=== PATIENT | female | born 1940 | race Caucasian/White ===

== ENCOUNTER → 2016-06-24 | Outpatient (CLI) | payer OTHER ==
[2016-06-24 14:42] LABS: HEMOGLOBIN A1C 6.85 % (4.2-6.0)
== END ==
LOC: LAB 14:15
DX: E11.9 Type 2 diabetes mellitus without complications (principal)
CPT/HCPCS: 36415; 83036

== ENCOUNTER → 2016-07-01 | Outpatient (CLI) | payer OTHER | LOC: MMPC 09:00 | DX: E11.9 Type 2 diabetes mellitus without complications (principal); I10 Essential (primary) hypertension; G25.0 Essential tremor; E78.5 Hyperlipidemia, unspecified; K21.9 Gastro-esophageal reflux disease without esophagitis; N64.4 Mastodynia | CPT/HCPCS: 99213; G0463 ==

== ENCOUNTER → 2016-11-04 | Outpatient (CLI) | payer OTHER | LOC: MMPC 11:11 | DX: E11.9 Type 2 diabetes mellitus without complications (principal); I10 Essential (primary) hypertension; G25.0 Essential tremor; E78.5 Hyperlipidemia, unspecified; L71.9 Rosacea, unspecified; K21.9 Gastro-esophageal reflux disease without esophagitis | CPT/HCPCS: 83037; 99213; G0463 ==